=== PATIENT | male | born 1935 | race Caucasian/White ===

== ENCOUNTER → 2021-05-14 | Outpatient (CLI) | payer MEDICARE ==
--- NOTE | 2021-05-14 11:31 | US ---
LOWER EXTREMITY VENOUS INSUFFICIENCY CLINICAL HISTORY: wound. SIDE PERFORMED: Bilateral 1) Color flow is present and patency is documented in the following vessels. No DVT or SVT is noted . Femoral Vein Popliteal Vein Small Saph Vein Exam started at proximal femoral vein bilaterally due to patient had his pants on 2) There is venous reflux noted at the following venous levels: none IMPRESSION: No evidence for venous reflux for DVT at this time.
== END | disposition home or self-care (01) ==
LOC: RADUSWWP 10:00
PROVIDERS: ATTEND Family Medicine
DX: L08.9 Local infection of the skin and subcutaneous tissue, unspecified (principal)
CPT/HCPCS: 93922; 93970